=== PATIENT | female | born 1990 | race Caucasian/White ===

== ENCOUNTER 2016-09-12 17:26 | Emergency (ER) | payer BC ==
[2016-09-12 18:17] VITALS: BP 131/79
[2016-09-12] MEDS ORDERED: Ondansetron ODT TAB* 4 MG PO ONE (18:25)
--- NOTE | 2016-09-12 19:03 | UC ---
Throat Pain/Nasal Glenn HPI - HPI Summary HPI Summary: ST starting 2 days ago, then abrupt onset last night of vomiting, nausea, and diarrhea. Vomiting and dry-heaving continued all day today with occasional diarrhea. Denies focal belly pain or fever. - History of Current Complaint Chief Complaint: UCGeneralIllness Stated Complaint: SORE THROAT/NAUSEA/VOMITING Time Seen by Provider: 09/12/16 18:44 Hx Obtained From: Patient Hx Last Menstrual Period: 08/19/16 ?: No Onset/Duration: Gradual Onset, Lasting Hours Severity: Mild Cough: None Associated Signs & Symptoms: Positive: Vomiting. Negative: Fever - Allergies/Home Medications Allergies/Adverse Reactions: Allergies Allergy/AdvReac Type Severity Reaction Status Date / Time Penicillins Allergy Hives Verified 09/12/16 18:17 Home Medications: Home Medications NK [No Home Medications Reported] 09/12/16 [History Confirmed 09/12/16] PMH/Surg Hx/FS Hx/Imm Hx Previously Healthy: Yes - Surgical History Surgical History: Yes - Family History Known Family History: Negative: Blood Disorder - Social History Occupation: Student Lives: Alone Alcohol Use: Rare Substance Use Type: None Smoking Status (MU): Never Smoked Tobacco Review of Systems Constitutional: Negative Skin: Negative Eyes: Negative ENT: Sore Throat Respiratory: Negative Cardiovascular: Negative Gastrointestinal: Vomiting, Diarrhea Genitourinary: Negative Motor: Negative Neurovascular: Negative Musculoskeletal: Negative Neurological: Negative Psychological: Negative All Other Systems Reviewed And Are Negative: Yes Physical Exam Triage Information Reviewed: Yes Appearance: Well-Appearing, No Pain Distress, Well-Nourished Vital Signs: Initial Vital Signs Temp 98.9 F 09/12/16 18:12 Pulse 80 09/12/16 18:12 Resp 16 09/12/16 18:12 BP 131/79 09/12/16 18:12 Pulse Ox 100 09/12/16 18:12 Vital Signs Reviewed: Yes Eye Exam: Normal Eyes: Positive: Conjunctiva Clear ENT Exam: Normal ENT: Positive: Normal ENT inspection, Hearing grossly normal, Pharynx normal, TMs normal. Negative: Pharyngeal erythema Dental Exam: Normal Neck exam: Normal Neck: Positive: Supple, Nontender, No Lymphadenopathy Respiratory Exam: Normal Respiratory: Positive: Chest non-tender, Lungs clear, Normal breath sounds, No respiratory distress, No accessory muscle use Cardiovascular Exam: Normal Cardiovascular: Positive: RRR, No Murmur Musculoskeletal Exam: Normal Neurological Exam: Normal Neurological: Positive: Alert Psychological Exam: Normal Skin Exam: Normal Throat Pain/Nasal Course/Dx - Differential Dx/Diagnosis Provider Diagnoses: gastroenteritis. viral syndrome Discharge - Discharge Plan Condition: Stable Disposition: HOME Patient Education Materials: Gastroenteritis (ED) Referrals: No Primary Care Phys,NOPCP [Primary Care Provider] - Additional Instructions: Use your zofran as needed for nausea and vomiting. Rapid strep negative.
== END 2016-09-12 19:04 | disposition home or self-care (01) ==
LOC: UCCORT 17:26
DX: K52.9 Noninfective gastroenteritis and colitis, unspecified (principal); B34.9 Viral infection, unspecified; R03.0 Elevated blood-pressure reading, without diagnosis of hypertension; Z88.0 Allergy status to penicillin
CPT/HCPCS: 87651; 99202; G0463